=== PATIENT | male | born 1965 | race Caucasian/White ===

== ENCOUNTER 2022-08-11 09:37 | Emergency (ER) | payer OTHER, SELFPAY ==
[2022-08-11 10:42] VITALS: BMI 45.1
[2022-08-11 10:44] VITALS: BP 145/95; PULSE 63; RESP 18; TEMP 36.6; O2SAT 96
--- NOTE | 2022-08-11 11:08 | XRR_ITS ---
PROCEDURE INFORMATION: Exam: XR Right Foot Exam date and time: 08/11/2022 11:17 AM Age: 57 years old Clinical indication: Injury or trauma; Other: Dropped auto part on RT foot; Blunt trauma; Right TECHNIQUE: Imaging protocol: Radiologic exam of the right foot. Views: 1 or 2 views. COMPARISON: No relevant prior studies available. FINDINGS: Bones/joints: Normal. Soft tissues: Normal. XR/XR foot RT 2V [id number] IMPRESSION: No acute findings.
[2022-08-11] MEDS: tetanus-dipt-pertussis 0.5 mL SDV IM (11:33)
[2022-08-11] MEDS: lidocaine 1% INJ 10 mL (per mL) 20 ML INJECTION (11:35)
--- NOTE | 2022-08-11 11:50 | W.ED.EXTPRO ---
HPI - Extremity Problem General: Chief complaint: Extremity Injury, Lower Stated complaint: auto part fell on right foot Time Seen by Provider: 08/11/22 11:07 History of Present Illness: 57-year-old male who presents with pain to the right foot first second and third toes after he dropped a fly wheel on the foot. This happened just prior to arrival. He has avulsion of the nail of the great toe as well as abrasions on the dorsum of the second and third toes. Unknown last tetanus. He denies any numbness or tingling. He was able to weight-bear. The injury occurred through his shoe. Review of Systems General: Reports: Other (Negative except for HPI) Physical Exam Narrative: EXAM NARRATIVE: Obese white male, no acute distress Const: COMMON NORMALS: no acute distress, patient oriented x3 and alert Eye: OTHER: Conjunctiva are pink Resp: OTHER: No respiratory distress Cardio: OTHER: Heart regular rate Extremity: OTHER: Injury to the right foot includes ecchymosis to the distal portion of the third toe at the distal phalanx region. There is a superficial abrasion of this region. There is normal range of motion and normal sensation of the third toe. On the second toe he has a larger abrasion with ecchymosis but no laceration. Normal range of motion of the second toe on the right foot, normal sensation. On the great toe, he has full avulsion of the nail of the great toe with ecchymosis. He has full range of motion, normal sensation. Unable to assess the nailbed without removing the nail which I will perform once a digital block has been performed. The remainder of the foot exam is intact. Distal pulses are normal. Normal motor function, dorsalis pedis and posterior tibial pulses are normal. Cap refills less than 2 seconds Neuro: COMMON NORMALS: patient oriented x3 SENSORIUM/ORIENTATION: Yes alert Procedures Laceration Laceration 1: Site: other (Right great toe) Side (If applicable): right Description: other (Avulsion of the nail of the great toe with laceration of the nailbed) Local Anesthetic: lidocaine 1% (6 cc of 1% lidocaine used to perform a digital block of the great toe) Amount of anesthesia used (mL): 6 Pre-repair: wound explored and irrigated extensively Skin layer closed with: vicryl (Nailbed closed with 5-0 Vicryl, #5 sutures ) Size (cm): 5-0 Number of sutures: 5 Technique: simple, interrupted Course ED course: X-rays have been performed of the right foot. The patient's been given a tetanus booster. I performed a digital block and will remove the nail and explore the toe. Vital Signs: Vital signs: Vital Signs Temperature 97.8 F 08/11/22 10:44 Pulse Rate 63 08/11/22 10:44 Respiratory Rate 18 08/11/22 10:44 Blood Pressure 145/95 08/11/22 10:44 Pulse Oximetry 96 08/11/22 10:44 Oxygen Delivery Me thod 08/11/22 10:44 MDM - Extremity (Nontraumatic) Medical Decision Making No fractures noted on x-ray. Discussed procedure with the patient. He is not wanting the nail placed back and noticed that the nail may not grow back and he is okay with that. Procedure was performed per the procedure note. The nailbed had a laceration so it was repaired with 5-0 Vicryl. Patient is on Xarelto for atrial fibrillation so we had some ongoing oozing. Surgicel followed by Xeroform was used to control bleeding. Patient has had a dressing applied. He is discharged home with wound care instructions. I have recommended that he keep the current dressing in place for 48 hours. He needs to keep the foot elevated is much as possible. Weight-bear as tolerated. Tylenol as needed for pain. Return if any further problems. Infection precautions have been discussed as well as bleeding precautions. Lab Data Radiology Impressions Foot X-Ray 08/11/22 11:08 IMPRESSION: No acute findings. Imaging Data Xray Ortho: My impression: No fracture or dislocation Discharge Plan Discharge Patient Disposition: Home Clinical Impression: Laceration of nail bed of toe, Avulsed toenail, Contusion of toe Condition: Stable Discharge Orders: Discharge ED (Routine); Ordered 08/11/22 Ordered By: Mariah Nicole Discharge Diet: Advance as tolerated Discharge Activity: Resume usual activity Patient Instructions: Contusion, Nail Avulsion (ED), Opioid Safety, Pain Management Activity Restrictions/Additional Instructions: Keep the current dressing in place for the next 48 hours. After that you can remove the dressing. Subsequent to that, keep antibiotic ointment and a dressing on that great toe. Elevate the foot is much as possible. Tylenol as needed for pain. The toenail will most likely not grow back. Return if you have any further problems. 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
[2022-08-11 13:13] VITALS: BP 162/95; PULSE 66; RESP 16; O2SAT 99
--- NOTE | 2022-08-22 15:07 | DCPLANNER ---
08.20.22 - patient was called due to no primary care physician - patient stated that he sees Dr. Benjamin
== END 2022-08-11 13:18 | disposition home or self-care (01) ==
PROVIDERS: Emergency Provider Emergency Medicine
DX: S91.211A Laceration without foreign body of right great toe with damage to nail, initial encounter (principal); W22.8XXA Striking against or struck by other objects, initial encounter; Z23 Encounter for immunization
CPT/HCPCS: 11760; 73620; 90471; 90715; 99283